=== PATIENT | female | born 1955 | race Asian ===

== ENCOUNTER 2023-11-22 09:10 | Emergency (ER) | payer MEDICAID, OTHER ==
--- NOTE | 2023-11-22 11:31 | ED Physician Documentation ---
PD HPI UPPER EXT INJURY - Stated complaint Stated Complaint: LT HAND LAC - Chief complaint Chief Complaint: Laceration - Additonal information Additional information: 68-year-old female here for left second finger laceration after window fell onto her hand. Tetanus is up-to-date. She attempted to pull her finger out from the window now with a deep laceration and severe pain with any flexion extension of the left second finger. On initial visual exam it does appear that tendon is exposed. Bleeding is well-controlled patient has not any blood thinners. PD PAST MEDICAL HISTORY - Past Medical History Past Medical History: Yes Cardiovascular: Hypertension - Past Surgical History Past Surgical History: No - Present Medications Home Medications: Ambulatory Orders Medication Instructions Recorded Confirmed cephALEXin [Keflex] 500 mg PO Q6H 5 Days #28 cap 11/22/23 - Allergies Allergies/Adverse Reactions: Allergies Allergy/AdvReac Type Severity Reaction Status Date / Time vasopressin Allergy Rash Verified 11/22/23 09:36 [From Pitressin Synthetic] - Social History Does the pt smoke?: No Smoking Status: Never smoker Does the pt drink ETOH?: No Does the pt have substance abuse?: No - Immunizations Immunizations are current?: Yes PD ED PE NORMAL - Vitals Vital signs reviewed: Yes - General General: Well developed/nourished - Derm Derm: Other (Left second finger: Deep laceration with exposure of tendon to the palmar aspect about 6.2 cm in length through muscle able to flex and extend although with tenderness tendon visualized no laceration of the tendon.) - Psych Psych: Normal mood Results - Vitals Vitals: Vital Signs - 24 hr 11/22/23 11/22/23 09:28 13:51 Temperature 36.4 C L Heart Rate 87 80 Respiratory 15 16 Rate Blood Pressure 162/86 H 158/87 H O2 Saturation 95 98 Oxygen O2 Source Room air - Rads (name of study) Left hand x-ray Relevant Findings:: Final report received, EMP independent interpretation of test, Other (No bony abnormalities no obvious foreign body.) Procedures - Laceration (location) left second finger Length in cm: 6.2 (left second finger palmar over the DIP and PIP joint) Wound type: Curved, Into subcut fat, Into muscle, Clean, Exposure of cartilage Neurovascular status: Sensory intact, Motor intact, Vascular intact Tendon involvement: Tendon intact, Other (Tendon exposed) Anesthesia: Marcaine 0.25% Wound preparation: Hibiclens, Irrigated copiously NS, Wound explored, To the base, Limited undermining Deep layer closure: Vicryl, size #-0 - enter number (5-1), # sutures - enter number (1) Skin layer closure: Nylon, Interrupted, Size #-0 - enter number (4-0), Sutures - enter # (13) Other: Patient tolerated well, No complications, Neurovascular intact, Dressing applied, Tetanus UTD PD Medical Decision Making - ED course ED course: Wound inspected under direct bright light with good visualization. Area with linear laceration across soft tissue through adipose with exposure of muscle belly or tendon. No overt foreign body. Area hemostatic. Neurovascular exam congruent with above. Area extensively irrigated with sterile normal saline under pressure After soaking in Hibiclens Bath. Laceration repaired With a total of 13 external sutures and 1 undermining Vicryl suture to help better approximate wound edges. (please see procedure note for further details). Patient tolerated procedure well and neurovascular exam intact and unchanged post repair with intact distal pulses and cap refill. Given that there was t endon exposure we went ahead and gave patient some intramuscular Rocephin here in the emergency department as well as a prescription of Keflex sent to her preferred pharmacy. Patient was given discharge teaching and mandrin her preferred primary language. Patient is right-hand dominant laceration happened to her left second finger. Cautious return precautions discussed w/ full understanding. Wound care discussed. Prompt follow up with primary care physician discussed and return for suture removal in 14 days. Departure - Departure Disposition: 01 Home, Self Care Clinical Impression: Laceration of left index finger Qualifiers: Encounter type: initial encounter Damage to nail status: without damage Foreign body presence: without foreign body Qualified Code(s): S61.211A - Laceration without foreign body of left index finger without damage to nail, initial encounter Instructions: ED Laceration All, ED Laceration Sure Close Prescriptions: cephALEXin [Keflex] 500 mg PO Q6H 5 Days #28 cap Comments: Come back for any signs of infection which would include: Redness, swelling, drainage, increased pain, or fevers. You can wash it soap and water. Keep it covered and moist with bacitracin ointment which is available over the counter; avoid neosporin. Follow-up with your physician in 14 days (November 21) for suture removal. Received a shot of Rocephin here in the emergency department you will need to take Keflex also known as cephalexin 500 mg 4 times a day for the next 5 days starting tomorrow. [facility] make sure that you pick this up first thing in the morning Or tonight but do not start until tomorrow morning. Forms: PCP List Discharge Date/Time: 11/22/23 13:56
[2023-11-22] MEDS: BUPIVACAINE 0.5% PF 10 ML VIAL SUBQ STA (11:55)
--- NOTE | 2023-11-22 11:58 | XRAY Report ---
PROCEDURE: Hand 3+V LT INDICATIONS: Trauma TECHNIQUE: 4 views of the hand(s) acquired. COMPARISON: None. FINDINGS: Bones: No fractures or dislocations. No suspicious bony lesions. 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 Soft tissues: No suspicious soft tissue calcifications or masses. Skin laceration, second finger lat erally at the PIP joint. No radiopaque foreign body. IMPRESSION: No acute bony abnormality. Reviewed by: Ed Ruiz MD on 11/22/2023 11:57 AM PDT Approved by: Ed Ruiz MD on 11/22/2023 11:57 AM PDT Station ID: [id number]
[2023-11-22] MEDS: LIDOCAINE 1% 2 ML VIAL MC ONE (12:24)
[2023-11-22] MEDS: cefTRIAXone 1 GM VIAL IM STA (12:24)
[2023-11-22] MEDS: FLUTICASONE NASAL SPRAY NAS STA (12:40)
[2023-11-22] MEDS: BACITRACIN ZINC OINT 1 PACKET TOP STA (13:36)
[2023-11-22 13:58] VITALS: BP 158/87; O2SAT 98
== END 2023-11-22 13:56 | disposition home or self-care (01) ==
LOC: ED 09:10
DX: S61.211A Laceration without foreign body of left index finger without damage to nail, initial encounter (principal); W20.8XXA Other cause of strike by thrown, projected or falling object, initial encounter; I10 Essential (primary) hypertension
CPT/HCPCS: 12042; 73130; 96372; 99283; A9270